=== PATIENT | female | born 1980 | race Two or more races ===

== ENCOUNTER 2025-06-11 12:24 | Outpatient (OUT) | payer OTHER, SELFPAY ==
--- OUTSIDE RECORDS SUMMARY | 2025-06-11 12:35 | XMS_ITS | Clinical Summary ---
Author Organization [facility] Address [address], [address] [place] [address] Care Team Providers Care Assistant Bookkeeper Name Role Phone Mayra Hidalog MD Primary Care Provider + Allergies No known active allergies Medications PARoxetine (PAXIL) 20 MG tablet 1 tablet 12/18/2019 Active ALPRAZolam (XANAX) 0.25 MG tablet take 1 tablet by mouth three times a day if needed 12/18/2019 Active Tirzepatide (MOUNJARO) 5 MG/0.5ML SOAJ Inject into the skin Active Active Problems Patient Care Coordination No te Formatting of this note migh t be different from the original. Desires cotest pap yearly No additional problems on file Encounters Date Type Department Care Team Description 05/14/2025 3:47 PM EDT - 05/16/2025 11:59 PM EDT Hospital Encounter [facility] [address], [address] [place] [id number] Screening mammogram, encounter for Discharge Disposition: Home or Self Care from Last 3 Months Family History Medical History Relation Name Comments Breast Cancer Maternal Grandmother Other Other No family h/o o variancancer or DVt. Relation Name Status Comments Brother Alive Father Alive Maternal Grandfather Alive Maternal Grandmother Mother Alive Other Other Paternal Grandfather Alive Paternal Grandmother Alive Social History Tobacco Use Types Packs/Day Years Used Date Smoking Tobacco: Never Smokeless Tobacco: Never Tobacco Cessation:Counseling Given: Not Answered Alcohol Use Standard Drinks/Week Comments Yes 0 (1 standard drink = 0.6 oz pur e alcohol) social [facility] Utilities Answer Date Recorded In the past 12 months has th e electric, gas, oil, or water company threatened to shut off services in your home? No 10/31/2024 Overall Financial Resource Strain (CARDIA) Answe r Date Recorded How hard is it for you to pa y for the very basics like food, housing, medical care, and heating? Not hard at all 10/27/2023 PHQ-2 Answer Date Recorded PHQ-9 Total Score 2 10/31/2024 Hunger Vital Sign Answer Date Recorded Within the past 12 months, y ou worried that your food would run out before you got the money to buy more. Never true 10/31/19 Within the past 12 months, t he food you bought just didn't last and you didn't have money to get more. Never true 10/31/2024 PRAPARE - Transportation Answer Date Re corded In the past 12 months, has l ack of transportation kept you from medical appointments or from getting medications? No 10/08 In the past 12 months, has l ack of transportation kept you from meetings, work, or from getting things needed for daily living? No 10/31/2024 Housing Stability Vital Sign Answer Hari e Recorded Unable to Pay for Housing in the Last Year Not o n file 10/27/2023 Number of Places Lived in the Last Year Not on f ile 10/27/2023 In the last 12 months, was t here a time when you did not have a steady place to sleep or slept in a care home (including now)? No 10/27/2023 Housing Stability Vital Sign Answer Hari e Recorded In the last 12 months, was t here a time when you were not able to pay the mortgage or rent on time? No 10/31/2024 In the past 12 months, how m any times have you moved where you were living? 0 10/31/2024 At any time in the past 12 m [facility], were you homeless or living in a care home (including now)? No 10/31/2024 Food Insecurity Answer Date Recorded Within the past 12 months, y ou worried that your food would run out before you got the money to buy more. 1 10/31/2024 Within the past 12 months, t he food you bought just didn't last and you didn't have money to get more. 1 10/31/2024 Comments No Sex and Gender Information Value Date Recorded Sex Assigned at Female 05/14/2025 7:44 AM EDT Legal Sex Female 11:41 PM EST Gender Identity Not on file Sexual Orientation Not on file Last Filed Vital Signs Vital Sign Reading Time Taken Comments Blood Pressure 136/82 10/31/2024 9:52 AM EST Pulse 70 03/28/2012 1:40 PM EDT Temperature 36.6 C (97.9 F) 03/28/2012 1:40 PM EDT Respiratory Rate 16 03/28/2012 1:40 PM EDT Oxygen Saturation - - Inhaled Oxygen Concentration - - Weight 79.4 kg (175 lb) 10/31/2024 9:52 AM EST Height 170.2 cm (5' 7 ) 10/31/2024 9:52 AM EST Body Mass Index 27.41 10/31/2024 9:52 AM EST Plan of Treatment Upcoming Encounters Date Type Department Care Team (Late st Contact Info) Description 11/01/2025 9:45 AM EST Office Visit [facility] Part of [address] [place] [address] Leesa Giang, HOP SORTER - CN[address] [place] [id number] Return in about 1 year (around 10/31/2025) for yearly. Health Maintenance Due Date Last Done Comments Varicella vaccine (1 of 2 - 13+ 2-dose series) 1993 DTaP/Tdap/Td vaccine (1 - Tdap) 1999 Hepatitis B vaccine (1 of 3 - 19+ 3-dose series) 1999 Diabetes screen 2015 Lipids 2020 Flu vaccine (#1) 04/06/2025 COVID-19 Vaccine ( - season) 2025 Colonoscopy 2025 Colorectal Cancer Screen 2025 FIT/FOBT: Average risk 2025 Fecal-DNA (Cologuard): Average risk 2025 Sigmoidoscopy/CT colonography 2025 Depression Screen 10/31/2025 10/31/2024, 10/31/2024 Breast cancer screen 05/14/2027 05/14/2025, 12/13/2023, 10/08/2022, Additional history exists Pap smear 10/31/2027 10/31/2024, 10/08, 10/22/2022, Additional history exists Cervical cancer screen 10/31/2029 HPV (without or with Pap) 10/31/20292024, 12/29/2023, 10/22/2022 HIV screen Completed 02/18/2021 Hepatitis C screen Completed 02/18/2021, 02/18/2021 HPV vaccine (No Doses Required) Completed Hepatitis A vaccine Aged Out No longe r eligible based on patient's age to complete this topic Hib vaccine Aged Out No longer eligi ble based on patient's age to complete this topic Meningococcal (ACWY) vaccine Aged Out No longer eligible based on patient's age to complete this topic Meningococcal B vaccine Aged Out No l onger eligible based on patient's age to complete this topic Pneumococcal 0-49 years Vaccine Aged Out No longer eligible based on patient's age to complete this topic Polio vaccine Aged Out No longer elig ible based on patient's age to complete this topic Procedures Procedure Name Priority Date/Time Associated Diagnosis Comments MASON TURNER DIGITAL SCREEN BILATERAL Routine 05/14/2025 4:04 PM EDT Screening mammogram, encounter for HUMAN PAPILLOMAVIRUS (HPV) DNA PROBE THIN PREP HIGH RISK Routine 10/31/2024 12:00 AM EST ACCOUNT RETENTION REPRESENTATIVE CYTOLOGY Routine 10/31/2024 12:00 AM EST HIV SCREEN Routine 02/18/2021 12:13 PM EDT Screen for STD (sexually transmitted disease) HEPATITIS C ANTIBODY Routine 02/18/2021 12:13 PM EDT Screen for STD (sexually transmitted disease) from Last 3 Months or Most Recently Relevant to Health Maintenance Results * MASON TURNER DIGITAL SCREEN BILATERAL (05/14/2025 4:04 PM EDT) Anatomical Region Laterality Modality Breast Bilateral Mammography 05/21/2025 7:00 PM EDT Impressions 05/21/2025 7:01 PM EDT No evidence of malignancy seen in either breast. Advise annual screening mammography. Breast tissue can be either dense or not dense. Dense tissue makes it harder to find breast cancer on a mammogram and also raises the risk of developing breast cancer. Your breast tissue is NOT DENSE. Talk to your health care provider about breast density, risk for breast cancer and your individual situation. BI-RADS 1 BIRADS: BIRADS - CATEGORY 1 Negative, no evidence of malignancy. Normal interval follow-up is recommended in 12 months. OVERALL ASSESSMENT - NEGATIVE A letter of notification will be sent to the patient regarding the results. [employer] recommends annual mammograms for women 40 years and older. Performing Facility: [facility] [address] [place] [address] Narrative 05/21/2025 7:01 PM EDT EXAMINATION: SCREENING DIGITAL BILATERAL MAMMOGRAM WITH TOMOSYNTHESIS, 05/14/2025 TECHNIQUE: Screening mammography was performed with tomosynthesis including MLO and CC views of the bilateral breasts. Computer aided detection was used for the interpretation of this exam. COMPARISON: 13 December 2023 HISTORY: Screening. Positive family history of breast cancer; maternal grandmother 44. No HRT therapy or breast interventions. TC score 10.46 FINDINGS: BREAST COMPOSITION: There are scattered areas of fibroglandular density. Bilateral breasts are composed of scattered fibroglandular density. No skin thickening, nipple contour changes, suspicious calcifications, suspicious masses, areas of architectural distortion or significant interval changes are noted. Leesa Giang HOP SORTER - CNM IM MAMMOGRAPHY ORDERABLES Final Result * Human papillomavirus (HPV) DNA probe thin prep high risk (10/31/2024 12:00 AM EST) Specimen Description CERVICAL MATERIAL 10/31/2024 12:00 AM EST [employer] HPV Sample .THIN PREP 10/31/2024 12:00 AM EST [employer] HPV, Genotype 16 Not Detected Not Detected 10/31/2024 12:00 AM EST [employer] HPV, Genotype 18 Not Detected Not Detected 10/31/2024 12:00 AM EST [employer] HPV, High Risk Other Not Detected Not Detected 10/31/2024 12:00 AM EST [facility] HPV, Interpretation 10/31/2024 12:00 AM EST [facility] Comment: This test amplifies and detects DNA of 14 high-risk HPV types associated with cervical cancer and its precursor lesions (HPV types 16,18, 31, 33, 35, 39, 45, 51, 52, 56, 58, 59, 66, and 68). Sensitivity may be affected by specimen collection methods, stage of infection, and the presence of interfering substances. Results should be interpreted in conjunction with other available laboratory and clinical data. A negative high-risk HPV result does not exclude the possibility of future cytologic HSIL or underlying CIN2-3 or cancer. This test is intended for medical purposes only and is not valid for the evaluation of suspected sexual abuse or for other forensic purposes. CERVICAL MATERIAL 10/31/2024 Leesa Giang HOP SORTER - CN HEMATOLOGY ORDER JOAN Final Result [facility] [address] [place] [address], [facility] [phone] [place] [address], [facility] [phone] * ACCOUNT RETENTION REPRESENTATIVE Cytology (10/31/2024 12:00 AM EST) Cytology Report Path Number: [id number] DIAGNOSIS Imaged ThinPrep Pap - Cervical (1 monolayer slide): Specimen Adequacy: Satisfactory for evaluation. - Endocervical/trans formation zone component present. Descriptive Diagnosis: Negative for intraepithelial lesion or malignancy. Comments: Specimen was screened at [facility], [address]. [facility] [address] [employer] Screener: JORGE Electronically Signed Out MARISABEL Fontaine(ASCP) jorge/11/04/2024 Procedure/Addendum HPV Procedure Report Date Ordered: 11/01/2024 Status: Signed Out Date Complete: 11/02/2024 By: System Interface Date Reported: 11/02/2024 Sample: HPV Type 16 Result: Not Detected Ref Range: Not Detected Sample: HPV Type 18 Result: Not Detected Ref Range: Not Detected Sample: Other High Risk HPV Result: Not Detected Ref Range: Not Detected Sample: HPV Interp Result: Ref Range: This test amplifies and detects DNA of 14 high-risk HPV types associated with cervical cancer and its precursor lesions (HPV types 16,18, 31, 33, 35, 39, 45, 51, 52, 56, 58, 59, 66, and 68). Sensitivity may be affected by specimen collection methods, stage of infection, and the presence of interfering substances. Results should be interpreted in conjunction with other available laboratory and clinical data. A negative high-risk HPV result does not exclude the possibility of future cytologic HSIL or underlying CIN2-3 or cancer. This test is intended for medical purposes only and is not valid for the evaluation of suspected sexual abuse or for other forensic purposes. Performed at [address] [address] ([phone] Source of Specimen: A: Imaged ThinPrep Pap - Cervical (1 monolayer slide) HPV Reflex?........... ...........HPV Regardless Clinical History Endometrial ablation Z12.4 Encounter for screening for malignant neoplasm of cervix LMP: 10/15/2024 Processing Lab: [address] [address] Interpretation performed at [facility], [address] [place] [address] This Pap Test has been evaluated with the assistance of the ThinPrep Pap Test Imaging System. The Pap smear is a screening test primarily for squamous epithelial lesions, which is subject to both false negative and false positive results. Your patient should be reminded to consult you immediately if she experiences any suspicious signs or symptoms, regardless of her Pap smear result. GYNECOLOGIC CYTOLOGY REPORT Patient Name: NARCISA POPE [facility] Rec: [id number] [facility] ANATOMIC PATHOLOGY [address] [place] [id number] [facility] [email or web address] [facility] CERVICAL MATERIAL 10/31/2024 025 6:35 AM EST Leesa Giang APRN - CNM PATHOLOGY/CYTOLO GY ORDERABLES Final Result [facility] [address] [place] [address], [facility] [phone] [facility] * Hepatitis C Antibody (02/18/2021 12:13 PM EDT) Hepatitis C Ab NONREACTIVE NONREACTIVE 02/19/20 12:13 PM EDT [facility] Comment: The hepatitis C procedure used in our laboratory is a Chemiluminescent test specific for three recombinant HCV antigens. A negative anti-HCV result indicates that the antibodies to hepatitis C virus are not present at this time. Individuals with reactive anti-HCV should be considered infected and infectious until proven otherwise. Confirmation of all equivocal or reactive results is recommended by ordering HCV RNA by PCR. BLOOD SPECIMEN / Unknown 02/18/2021 12:13 PM EDT 02/18/2021 12:14 PM EDT Leesa Giang APRN - CNM IMMUNOLOGY ORDER JOAN Final Result Performing Organization Address [facility]/ZIP Co de Phone Number [facility] [address] [place] [address], [facility] [phone] [place] [address], [facility] [phone] * HIV Screen (02/18/2021 12:13 PM EDT) HIV Ag/Ab NONREACTIVE NONREACTIVE 02/18/2021 12:13 PM EDT [facility] Comment: No laboratory evidence of HIV infection. If acute HIV infection is suspected, consider testing for HIV-1 RNA. BLOOD SPECIMEN / Unknown 02/18/2021 12:13 PM EDT 02/18/2021 12:14 PM EDT Leesa Giang HOP SORTER - CNM IMMUNOLOGY ORDER JOAN Final Result [facility] [address] [place] [address], [facility] [phone] [facility] [place] [address], [facility] [phone] from Last 3 Months or Most Recently Relevant to Health Maintenance Insurance [address] [place] [id number] [employer] Care Teams Assistant Bookkeeper Relationship Specialty Start Date End Date Mayra Hidalgo MD PCP - General Pediatrics 01/25/20
--- OUTSIDE RECORDS SUMMARY | 2025-06-11 12:35 | XMS_ITS | Clinical Summary ---
Author Organization [facility] Address [id number] [address] [place] [address] Care Team Providers Care Girl Friday Name Role Phone Mayra Hidalgo MD Primary Care Provider + Social History Tobacco Use Types Packs/Day Years Used Date Smoking Tobacco: Never Assessed Childcare Answer Date Recorded Childcare Unknown 02/15/2019 Employment Answer Date Recorded Employment Unknown 02/15/2019 Purpose - Life Answer Date Recorded Purpose and direction in life Unknown Comments Unknown Sex and Gender Information Value Date Recorded Sex Assigned at Not on file Legal Sex Female 11:32 AM EDT Gender Identity Not on file Sexual Orientation Not on file Plan of Treatment Health Maintenance Due Date Last Done Comments Depression Screening 1992 Tobacco Screening 1992 Adult BMI Screening 1998 DTaP,Tdap and Td Vaccines (1 - Tdap) 1999 Pap Smear 2001 Influenza Vaccine 05/07/2025 Medical Devices Not on file Insurance AN[employer]M Care Teams Girl Friday Relationship Specialty Start Date End Date Mayra Hidalgo MD PCP - General Pediatrics 01/06/17
--- OUTSIDE RECORDS SUMMARY | 2025-06-11 12:35 | XMS_ITS | Clinical Summary ---
Author Organization [facility] Address [address] [place] [address] Care Team Providers Care Blower And Compressor Assembler Name Role Phone Leonides Peralta MD Primary Care Provider [phone] Allergies No known active allergies Medications Tirzepatide (Mounjaro) 5 MG/0.5ML solution auto-injector Inject under the skin Active ALPRAZolam (Xanax) 0.25 MG tabletIndicatio ns:SAI (generalized anxiety disorder) Take 1 tablet (0.25 mg) by mouth 3 (three) times a day as needed for anxiety for up to 20 days 60 tablet 02/28/2025 Active PARoxetine (Paxil) 20 MG tabletIndicatio ns:SAI (generalized anxiety disorder) Take 1 tablet (20 mg) by mouth in the morning. 90 tablet 3 02/28/2025 Active Active Problems Problem Noted Date Diagnosed Date Encounter for medical examination to establish c are 07/19/2024 Wellness examination 07/19/2024 Assessment & Plan (07/19/2024 2:58 PM EST): I have reviewed Ht/Wt/BMI, I have reviewed recommended vaccines for patient's age, as well as all recommended screenings I have reviewed available care everywhere notes as well. I have recommended eating a balanced diet, as well as activity as chronic conditions allow It is recommended that the patient have a yearly eye exam, as well as twice a year dental exams Fu in this office for wellness on a yearly basis Diet: Eat three meals per day. Breakfast, lunch, and dinner. Avoid snacking. Avoid eating after 5/6 pm. Daily protein GOAL 35% of your intake; 30g per meal. Daily calorie GOAL 1,800-2,000 per day. Consider tracking your food intake on MyFtinessPal or LoseIt Water: Increase water intake; GOAL 64-80oz of water per day. Exercise: Increase activity. GOAL 30 minutes, 5 days per week. START SLOW. Start with 5 minutes, 5 days per week. Then increase to 10 days, 5 days per week. Continue to increase until you reach the goal. Increase steps; GOAL 10,000 steps per day. Be sure to get adequate sleep; GOAL 6-8 hours of sleep per night. SAI (generalized anxiety disorder) Assessment & Plan (07/19/2024 3:55 PM EST): Decreased her dose of paxil to 20mg from 30mg. Has been taking this dose for one month and feels she is doing well. 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 Feels a significant weight has been lifted from her and no longer is having anxiety attacks. Would like to decrease Paxil until ultimately weaned off. Discussed with patient the need to do this slowly. Encounters Date Type Department Care Team Description 04/23/2025 Telephone [facility] Medicine [address] [place] [address] Shelli Polanco NP from Last 3 Months Family History Medical History Relation Name Comments Cancer Maternal Grandmother Relation Name Status Comments Maternal Grandmother Social History Tobacco Use Types Packs/Day Years Used Date Smoking Tobacco: Never Smokeless Tobacco: Never Tobacco Cessation:Counseling Given: Not Answered Alcohol Use Standard Drinks/Week Comments Yes 1 (1 standard drink = 0.6 oz pur e alcohol) Comments No Sex and Gender Information Value Date Recorded Sex Assigned at Not on file Legal Sex Female 7:18 PM EDT Gender Identity Not on file Sexual Orientation Not on file Last Filed Vital Signs Vital Sign Reading Time Taken Comments Blood Pressure 132/82 07/19/2024 2:27 PM EST Pulse 78 07/19/2024 2:27 PM EST Temperature 36.7 C (98.1 F) 07/19/2024 2:27 PM EST Respiratory Rate 16 07/19/2024 2:27 PM EST Oxygen Saturation 98% 07/19/2024 2:27 PM EST Inhaled Oxygen Concentration - - Weight 85.3 kg (188 lb) 07/19/2024 2:27 PM EST Height 170.2 cm (5' 7 ) 07/19/2024 2:27 PM EST Body Mass Index 29.44 07/19/2024 2:27 PM EST Plan of Treatment Not on file Insurance [employer] Care Teams Blower And Compressor Assembler Relationship Specialty Start Date End Date Leonides Peralta MD PCP - General Family Medicine 07/05/24
--- OUTSIDE RECORDS SUMMARY | 2025-06-11 12:35 | XMS_ITS | Encounter Summary ---
Author Organization [facility] Address [address] [place] [address] Care Team Providers Care Tie Carrier Name Role Phone Mayra Hidalgo Primary Care Provider No, Referral Unavailable Unavailable Jose Matute MD Unavailable [phone] Jose Matute MD Unavailable [phone] Source Comments In the event this information is protected by the Federal Confidentiality of Alcohol and Drug AbusePatient Records regulations: The Federal rules restrict any use of the information to criminally investigate or prosecute any alcohol or drug abuse patient.[facility] Encounter Details Date Type Department Care Team (Late st Contact Info) Description 07/22/2018 Patient Msg Cardiology [address] [place] [address] Jose Matute MD [address] [place] [address] Monitor and blood test results Social History Tobacco Use Types Packs/Day Years Used Date Smoking Tobacco: Never Smokeless Tobacco: Never Alcohol Use Standard Drinks/Week Comments Yes 0 (1 standard drink = 0.6 oz pur e alcohol) infrequent Comments No Sex and Gender Information Value Date Recorded Sex Assigned at Not on file Legal Sex Female 8:09 AM EST Gender Identity Not on file Sexual Orientation Not on file documented as of this encounter Plan of Treatment Not on file documented as of this encounter Visit Diagnoses Not on filedocumented in this encounter Care Teams Tie Carrier Relationship Specialty Start Date End Date Mayra Hidalgo [address] [place] [address] PCP - General Internal Medicine 07/07/18 No, Referral Referring Cardiology 07/07/18 Jose Matute MD [address] [place] [address] Primary Staff Physician Cardiology 11/22/18 Jose Matute MD [address] [place] [address] Primary Staff Physician Cardiology 11/22/18 documented as of this encounter
--- OUTSIDE RECORDS SUMMARY | 2025-06-11 12:35 | XMS_ITS | Encounter Summary ---
Author Organization [facility] Address [address] [place] [address] Care Team Providers Care Medicine Man Name Role Phone Alina Cosby BUILDING INSULATION INSTALLER Unavailable [phone] Leonides Peralta MD Primary Care Provider [phone] Reason for Visit * Reason Onset Date Comments Med Refill 02/28/2025 Encounter Details Date Type Department Care Team (Late st Contact Info) Description 02/28/2025 Refill [facility] [address] [facility] [place] [address] Leonides Peralta MD [address] [place] [address] SAI (generalized anxiety disorder) (Primary Dx); Anxiety Social History Tobacco Use Types Packs/Day Years Used Date Smoking Tobacco: Never Smokeless Tobacco: Never Alcohol Use Standard Drinks/Week Comments Yes 1 (1 standard drink = 0.6 oz pur e alcohol) Comments No Sex and Gender Information Value Date Recorded Sex Assigned at Not on file Legal Sex Female 7:18 PM EDT Gender Identity Not on file Sexual Orientation Not on file documented as of this encounter Miscellaneous Notes * Telephone Encounter - Leonides Peralta MD - 02/28/2025 10:36 PM EDT Patient due for follow up visit. She can become my patient. documented in this encounter Plan of Treatment Not on file documented as of this encounter Visit Diagnoses Diagnosis SAI (generalized anxiety disorder)- Primary Generalized anxiety disorder Anxiety Anxiety state, unspecified documented in this encounter Care Teams Medicine Man Relationship Specialty Start Date End Date Leonides Peralta MD PCP - General Family Medicine 07/05/24 Alina Cosby NP Nurse Practitioner Family Medicine 06/22/24 04/30/25 documented as of this encounter
--- OUTSIDE RECORDS SUMMARY | 2025-06-11 12:35 | XMS_ITS | Clinical Summary ---
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 10/26/2018 Active Active Problems Problem Noted Date Diagnosed Date Tachycardia, unspecified Family History Medical History Relation Comments No Known Problems Father No Known Problems Mother Relation Status Comments Father Alive Maternal Aunt Alive thyroid Mother Alive Social History Tobacco Use Types Packs/Day Years Used Date Smoking Tobacco: Never Smokeless Tobacco: Never Alcohol Use Standard Drinks/Week Comments Yes 0 (1 standard drink = 0.6 oz pur e alcohol) infrequent Area Deprivation Index Answer Date Donny rded National Score (1-100), lower number is lower ri sk Not on file 08/12/2020 State Score (1-10), lower number is lower risk N ot on file 08/12/2020 Data from: https://www.neighborhoodatlas.medicine.[facility].edu/. Last address used for calculation Not on file 08/12/2020 Comments No Sex and Gender Information Value Date Recorded Sex Assigned at Not on file Legal Sex Female 8:09 AM EST Gender Identity Not on file Sexual Orientation Not on file Last Filed Vital Signs Vital Sign Reading Time Taken Comments Blood Pressure 114/70 10/26/2018 11:26 AM EST Pulse 75 10/26/2018 11:26 AM EST Temperature 36 C (96.8 F) 05/28/2007 7:00 AM EDT Respiratory Rate 18 05/28/2007 7:00 AM EDT Oxygen Saturation 98% 05/28/2007 7:00 AM EDT Inhaled Oxygen Concentration - - Weight 82.6 kg (182 lb) 10/26/2018 11:26 AM EST Height 170.2 cm (5' 7 ) 10/26/2018 11:26 AM EST Body Mass Index 28.51 10/26/2018 11:26 AM EST Plan of Treatment Health Maintenance Due Date Last Done Comments Anxiety Screening 1998 Depression Screening 1998 HIV Screening 1998 Hepatitis C Screening 1998 DTaP,Tdap,Td Vaccine (1 - Tdap) 1999 Hepatitis B Vaccine (1 of 3 - 19+ 3-dose series) 05/10 Cervical Cancer Screening 2001 HPV Vaccine (1 - 3-dose SCDM series) 2007 Mammogram Screening 2020 01/22/2017 Influenza Vaccine (#1) 2025 CT Colonography 2025 Cologuard (FIT-DNA) 2025 Colonoscopy 2025 Colorectal Cancer Screening 2025 Diabetes Screening 2025 05/27/2007 Fecal Occult Blood 2025 Lipid Screening 2025 Sigmoidoscopy 2025 Procedures Procedure Name Priority Date/Time Associated Diagnosis Comments BASIC METABOLIC PANEL STAT 05/27/2007 7:10 AM EDT Tachycardia Nos from Last 3 Months or Most Recently Relevant to Health Maintenance Results * BASIC METABOLIC PNL (05/27/2007 7:10 AM EDT) Glucose 93 65 - 100 mg/dL [facility] BUN 16 8 - 25 mg/dL [facility] Creatinine 0.7 0.7 - 1.4 mg/dL [facility] Sodium 139 132 - 148 mmol/L [facility] Potassium 3.9 3.5 - 5.0 mmol/L [facility] Chloride 102 98 - 110 mmol/L [facility] CO2 30 23 - 32 mmol/L [facility] Anion Gap 7 0 - 15 mmol/L [facility] Calcium 9.7 8.5 - 10.5 mg/dL [facility] Blood specimen (specimen) BLOOD SPECIMEN / Unknown 05/27/2007 7:10 AM EDT Jose Matute MD LABORATORY Final Result [facility] [address] 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
[2025-06-11 13:07] LABS: Hematocrit 40.7 % (36.0-48.0); Hemoglobin 13.1 g/dL (12.0-16.0); Immature Granulocytes Abs Auto 0.02 10^3/uL (0.00-0.03); Immature Granulocytes Pct Auto 0.3 % (0.0-0.5); Lymphocytes Absolute Auto 2.4 10^3/uL (1.2-3.8); Mean Corpuscular HGB Conc 32.2 g/dL (29.9-35.2); Mean Corpuscular Hemoglobin 26.4 pg (26.7-34.0); Mean Corpuscular Volume 82.1 fL (81.0-99.0); Platelet Count 275 10^3/uL (150-450); Red Blood Count 4.96 10^6/uL (4.20-5.40); White Blood Count 6.9 10^3/uL (4.0-11.0)
[2025-06-11 15:30] LABS: Alanine Aminotransferase 20 U/L (14-59); Albumin Globulin Ratio 1.1; Albumin Level 4.1 g/dL (3.4-5.0); Alkaline Phosphatase 55 U/L (46-116); Anion Gap 11.3; Aspartate Amino Transferase 12 U/L (15-37); Blood Urea Nitrogen 12.0 mg/dL (7.0-18.0); Calcium 8.6 mg/dL (8.5-10.1); Carbon Dioxide 28.5 mmol/L (21.0-32.0); Chloride 105 mmol/L (98-107); Estimated GFR (African America >60 (>=60 mL/min/1.73m^2); Estimated GFR (Non-African Ame >60 (>=60 mL/min/1.73m^2); Globulin 3.7 g/dL; Glucose 81 mg/dL (74-106); Lipase 41.0 U/L (16.0-77.0); Potassium 3.8 mmol/L (3.5-5.1); Sodium 141 mmol/L (136-145); Thyroid Stimulating Hormone 3.415 uIU/mL (0.358-3.740); Total Protein 7.8 g/dL (6.4-8.2)
== END 2025-06-11 12:25 | disposition home or self-care (01) ==
PROVIDERS: PCP Family Medicine; Visit Provider Family Medicine
DX: R10.11 Right upper quadrant pain (principal); R49.0 Dysphonia; R13.10 Dysphagia, unspecified
CPT/HCPCS: 36415; 80053; 83690; 84439; 84443; 85025

== ENCOUNTER 2025-06-12 07:57 | Outpatient (OUT) | payer OTHER, SELFPAY ==
--- NOTE | 2025-06-12 08:00 | US_ITS ---
The [address] [address] Patient Name: TIA HOLLY MRN: [id number] date: 1980 Sex: F Assigned Patient Location: Current Patient Location: Accession/Order Number: [id number] Exam Date: 06/12/2025 08:01 Report Date: 06/12/2025 09:53 At the request of: LORNE JAMIL DO Procedure: US right upper quadrant LIMITED RIGHT UPPER QUADRANT ABDOMINAL ULTRASOUND CLINICAL HISTORY: Right upper quadrant and epigastric pain for the past month COMPARISON: None The gallbladder is physiologically distended. Stones are seen at the gallbladder neck measuring up to 18 mm in size. The gallbladder wall is top normal in thickness. No pericholecystic fluid is seen. No intra- or extrahepatic biliary dilatation is evident. The common duct measures 3-4 mm. The liver is normal in echogenicity. No intrahepatic masses are seen. There is appropriate hepatopetal flow within the main portal vein. The pancreas shows no significant sonographic abnormality. Cursory evaluation of the right kidney reveals no hydronephrosis or fluid within Canales's pouch. US/US right upper quadrant IMPRESSION: CHOLELITHIASIS Impression dictated by: Amira Wellington M.D. 06/12/2025 9:53 AM Dictation Location: [place] [address] Electronically authenticated by: [id number] Y Date: 06/12/2025 09:53
== END 2025-06-12 07:58 | disposition home or self-care (01) ==
LOC: US 07:57
PROVIDERS: PCP Family Medicine; Visit Provider Family Medicine
DX: R10.11 Right upper quadrant pain (principal); R49.0 Dysphonia; R13.10 Dysphagia, unspecified; K80.20 Calculus of gallbladder without cholecystitis without obstruction
CPT/HCPCS: 76705